=== PATIENT | male | born 1980 | race Caucasian/White ===

== ENCOUNTER 2016-07-12 09:15 | Emergency (ER) | payer SELFPAY ==
--- NOTE | 2016-07-14 11:27 | ER ---
ADMIT: 07/12/2016 RM/LOC: ER [facility] MR#: [id number] [facility] [id number] LASHAWN VELA [address] [place] [address] Emergency Room Report SEX: M AGE: 36 : 1980 DATE: 07/12/2016 ADDENDUM: CHIEF COMPLAINT: Abscess on left-sided neck. HISTORY OF PRESENT ILLNESS: This 36-year-old who had this there since about a week ago. It has not really drained on its own, but it seems to be open. We are going to perform an incision and drain. I am sending him home on Keflex and Bactrim, have him follow up with PCP if worsen. EDIT: 07/12/2016 1304 njv JAKY Tee / Nilton Biswas MD / kathryn JOB #: [id number] CC: Nilton Biswas MD, Attending Physician
== END 2016-07-12 10:40 | disposition home or self-care (01) ==
LOC: ER 09:15
PROC: 0H94XZZ Drainage of Neck Skin, External Approach (ICD-10-PCS; principal; 2016-07-12)
DX: L02.11 Cutaneous abscess of neck (principal); Z88.0 Allergy status to penicillin; F17.210 Nicotine dependence, cigarettes, uncomplicated